=== PATIENT | female | born 1970 | race Caucasian/White ===

== ENCOUNTER 2021-01-15 20:47 | Emergency (ER) | payer SELFPAY ==
[2021-01-17] MEDS ORDERED: Lidocaine 1% (PF) 30 ML VIAL ONE (05:42)
[2021-01-17] MEDS ORDERED: Triple Antibiotic Oint 1 GM Packet ONE (05:50)
== END 2021-01-15 22:06 | disposition left against medical advice (07) ==
LOC: CSHERS 20:47
DX: Z53.21 Procedure and treatment not carried out due to patient leaving prior to being seen by health care provider (principal)
CPT/HCPCS: J2001

== ENCOUNTER 2022-01-18 07:40 | Emergency (ER) | payer SELFPAY ==
[2022-01-18] MEDS ORDERED: Bupivacaine PF 0.5% 30 ML VIAL ONE (08:31)
[2022-01-18] MEDS ORDERED: Acetaminophen 325 MG TAB ONE (08:33)
== END 2022-01-18 09:15 | disposition home or self-care (01) ==
LOC: CSHERS 07:40
DX: L02.415 Cutaneous abscess of right lower limb (principal); I10 Essential (primary) hypertension; F17.210 Nicotine dependence, cigarettes, uncomplicated
CPT/HCPCS: 27301; S0020